=== PATIENT | male | born 1990 | race Caucasian/White ===

== ENCOUNTER → 2019-09-06 | Outpatient (CLI) | payer MEDICAID ==
[~2019-09-06] MED LIST: ATOM40CA PO; CLON-412 PO; KLON0.5T PO; MAPA500T17 GT; METH5TAB2 PO; NICO21DI26 EXT; NO HISTORICAL MEDS; TRAZ100T2 PO; no home meds
[2019-09-06 15:08] LABS: HEMATOCRIT 43.1 % (42.0-52.0); HEMOGLOBIN 14.9 g/dl (13.5-17.5); MEAN CORPUSCULAR HEMOGLOBIN 29.7 pg (27.0-33.0); MEAN CORPUSCULAR HGB CONC 34.6 g/dl (32.0-36.5); PLATELET COUNT, AUTOMATED 217 10^3/uL (150-450); RED BLOOD COUNT 5.01 10^6/uL (4.30-6.10)
[2019-09-06 15:22] LABS: ALBUMIN 4.1 GM/DL (3.2-5.2); ALT/SGPT 26 U/L (12-78); BILIRUBIN,TOTAL 0.5 MG/DL (0.2-1.0); BLOOD UREA NITROGEN 14 MG/DL (7-18); CALCIUM LEVEL 8.7 MG/DL (8.5-10.1); CARBON DIOXIDE LEVEL 25 MEQ/L (21-32); CHLORIDE LEVEL 108 MEQ/L (98-107); CREATININE FOR GFR 0.99 MG/DL (0.70-1.30); GLOMERULAR FILTRATION RATE > 60.0 (>60); GLUCOSE, FASTING 100 MG/DL (70-100); POTASSIUM SERUM 4.1 MEQ/L (3.5-5.1); SODIUM LEVEL 139 MEQ/L (136-145); TOTAL PROTEIN 7.2 GM/DL (6.4-8.2)
--- NOTE | 2019-09-06 15:49 | ECGEPIP ---
[facility] Test Date: 2019-09-06 Pat Name: ALFREDO GAMBOA Department: Room: - Gender: Male Er Rn: [facility] : 1990 Requested By: Bj Taylor Order Number: [id number] Reading MD: Bird Hazel Measurements Intervals [place] Rate: 65 P: 69 TN: 136 QRS: 36 QRSD: 97 T: 1 QT: 413 QTc: 429 Interpretive Statements SINUS RHYTHM Nonspecific inferoapical ST/T-wave abnormalities No prior tracing for comparison. Clincal correlation advised Electronically Signed on 09-06-2019 15:49:22 EDT by Bird Hazel
[2019-09-06 17:06] LABS: CHLAMYDIA DNA AMPLIFICATION NEGATIVE (NEGATIVE); GC DNA AMPLIFICATION NEGATIVE (NEGATIVE)
[2019-09-07 11:11] LABS: HEPATITIS B SURFACE ANTIGEN NEGATIVE (NEGATIVE)
[2019-09-07 11:40] LABS: HEPATITIS C VIRUS ABY INDEX 0.1 INDEX (<0.8); HIV 1&2 SCREEN CENTAUR NEGATIVE (NEGATIVE)
== END ==
LOC: M LAB 14:24
PROVIDERS: ATTEND Family Medicine
DX: F11.20 Opioid dependence, uncomplicated (principal)

== ENCOUNTER 2019-12-21 11:55 | Emergency (ER) | payer MEDICAID ==
[~2019-12-21] VITALS: Ht 175.3 cm; Wt 96.2 kg
[2019-12-21 11:56] VITALS: BP 131/74
[2019-12-21] MEDS ORDERED: METHADONE (12:02)
[2019-12-21] MEDS ORDERED: BACT800T5 PO (15:45)
== END 2019-12-21 13:14 | disposition left against medical advice (07) ==
LOC: M ED 11:55
DX: Z53.21 Procedure and treatment not carried out due to patient leaving prior to being seen by health care provider (principal)

== ENCOUNTER 2019-12-21 13:34 | Emergency (ER) | payer MEDICAID, OTHER ==
[~2019-12-21] VITALS: Ht 175.3 cm; Wt 96.7 kg
[~2019-12-21 13:34] MED LIST changes: +METHADONE
[2019-12-21] MEDS ORDERED: BACT800T5 PO (15:45)
[2019-12-21 15:57] VITALS: BP 133/78
== END 2019-12-21 16:10 | disposition home or self-care (01) ==
LOC: M ED 13:34
DX: L05.01 Pilonidal cyst with abscess (principal); K21.9 Gastro-esophageal reflux disease without esophagitis; F17.210 Nicotine dependence, cigarettes, uncomplicated; F19.11 Other psychoactive substance abuse, in remission; Z86.69 Personal history of other diseases of the nervous system and sense organs; Z79.899 Other long term (current) drug therapy

== ENCOUNTER 2023-04-11 12:59 | Emergency (ER) | payer OTHER ==
[~2023-04-11] VITALS: Ht 175.3 cm; Wt 88.1 kg
[~2023-04-11 12:59] MED LIST changes: +BACT800T5 PO
[2023-04-11] MEDS ORDERED: KETOROLAC 30 MG/ML 1ML VIAL IM ONE (15:50)
[2023-04-11] MEDS ORDERED: NS 1,000 ML IV ONE (16:30)
[2023-04-11 16:50] LABS: BASO % 0.2 % (0.0-1.0); EOS # 0.1 10^3/uL (0.0-0.5); HEMATOCRIT 41.3 % (42.0-52.0); HEMOGLOBIN 13.6 g/dl (13.5-17.5); LYMPH # 1.2 10^3/uL (1.5-5.0); LYMPH % 13.9 % (24.0-44.0); MEAN CORPUSCULAR HEMOGLOBIN 26.7 pg (27.0-33.0); MEAN CORPUSCULAR HGB CONC 32.9 g/dl (32.0-36.5); MONO # 0.7 10^3/uL (0.0-0.8); MONO % 8.1 % (2.0-8.0); NEUTROPHILS # 6.3 10^3/uL (1.5-8.5); NEUTROPHILS % 76.6 % (36.0-66.0); PLATELET COUNT, AUTOMATED 187 10^3/uL (150-450); WHITE BLOOD COUNT 8.3 10^3/uL (4.0-10.0)
[2023-04-11 17:01] LABS: ERYTHROCYTE SEDIMENTATION RATE 38 mm/hr (0-15)
[2023-04-11 17:19] LABS: ALBUMIN 3.7 G/DL (3.2-5.2); ALKALINE PHOSPHATASE 148 U/L (46-116); ALT/SGPT 45 U/L (7.0-40); AST/SGOT 38 U/L (<34); BILIRUBIN,DIRECT 0.2 MG/DL (<0.4); BILIRUBIN,TOTAL 0.5 MG/DL (0.3-1.2); BLOOD UREA NITROGEN 14 MG/DL (9-23); CALCIUM LEVEL 8.8 MG/DL (8.5-10.1); CARBON DIOXIDE LEVEL 33 MMOL/L (20-31); CHLORIDE LEVEL 101 MMOL/L (98-107); CREATININE FOR GFR 0.93 MG/DL (0.70-1.30); GLOMERULAR FILTRATION RATE > 60.0 (>60); GLUCOSE, FASTING 96 MG/DL (60-100); POTASSIUM SERUM 4.8 MMOL/L (3.5-5.1); SODIUM LEVEL 137 MMOL/L (136-145); TOTAL PROTEIN 7.5 G/DL (5.7-8.2)
[2023-04-11] MEDS ORDERED: DOXY-443 PO (19:07)
[2023-04-11] MEDS ORDERED: KETO10TAB PO (19:10)
[2023-04-11 19:12] VITALS: BP 102/52
[2023-04-11] MEDS ORDERED: KETOROLAC TROMETHAMINE 10 MG TAB PO ONE (19:20)
[2023-04-11] MEDS ORDERED: DOXYCYCLINE HYCLATE 100MG TABLET PO ONE (19:20)
[2023-04-11] MEDS ORDERED: ACETAMINOPHEN 500 MG TAB PO ONE (19:25)
== END 2023-04-11 19:30 | disposition home or self-care (01) ==
LOC: M ED 12:59
DX: G56.20 Lesion of ulnar nerve, unspecified upper limb (principal); L03.114 Cellulitis of left upper limb; F19.10 Other psychoactive substance abuse, uncomplicated; F17.200 Nicotine dependence, unspecified, uncomplicated; Z79.899 Other long term (current) drug therapy
CPT/HCPCS: 73110; 73130; 80048; 80076; 83605; 85025; 85652; 86140; 87040; 96372; 99284; J1885

== ENCOUNTER → 2023-04-25 | Outpatient (CLI) | payer OTHER ==
[~2023-04-25] MED LIST changes: +DOXY-443 PO; +KETO10TAB PO
== END ==
LOC: M SOG 09:19
PROVIDERS: ATTEND Physician Assistant
DX: S63.502A Unspecified sprain of left wrist, initial encounter (principal); Z53.9 Procedure and treatment not carried out, unspecified reason